=== PATIENT | male | born 1995 | race Two or more races ===

== ENCOUNTER 2022-11-01 22:54 | Emergency (ER) | payer SELFPAY ==
[~2022-11-01] VITALS: Ht 172.7 cm; Wt 101.4 kg
[2022-11-02 04:51] VITALS: BP 147/81
== END 2022-11-02 07:17 | disposition left against medical advice (07) ==
LOC: M ED 22:54
DX: Z53.21 Procedure and treatment not carried out due to patient leaving prior to being seen by health care provider (principal)